=== PATIENT | female | born 1985 | race Caucasian/White ===

== ENCOUNTER 2016-11-20 19:25 | Inpatient (IN) | payer BC ==
[2016-11-20 21:47] LABS: BASOPHIL 0.4 % (0-2.0); EOSINOPHIL 0.4 % (0-4.5); MCH 27.7 pg (25.7-33.7); MCHC 32.9 g/dl (32.0-36.0); MEAN PLT VOLUME 9.2 fl (7.5-11.1); NEUTROPHILS 78.4 % (42.8-82.8); PLATELET COUNT 249 K/MM3 (134-434); WHITE BLOOD COUNT 12.5 K/mm3 (4.0-10.0)
[2016-11-20 22:01] LABS: INR 1.02 (0.82-1.09); PROTHROMBIN TIME (PATIENT) 11.2 SEC (9.98-11.88)
[2016-11-20 22:38] LABS: ANION GAP 8 (8-16); CALCIUM 8.8 mg/dL (8.5-10.1); CO2 25 mmol/L (21-32); CREATININE 0.7 mg/dL (0.55-1.02); GLUCOSE,RANDOM 145 mg/dL (74-106)
--- NOTE | 2016-11-20 23:57 | HP ---
Past Medical History - Primary Care Physician PCP:: Adalid Luna - Admission Chief Complaint: 31yo P1 @ 39.4wks with contructions, r/out for ROM, +FM, no VB History of Present Illness: 1. h/o 2007 7lb 2. Morbid obesity - Elevated early GCT -146, GTT neg twice, EFW 11/15/16 - 4088gm 3. GBS positive for Ampicillin in active labor History Source: Patient Limitations to Obtaining History: No Limitations - Past Medical History ...: 7 ...Para: 1 ...Term: 1 ...: 0 ...Spon : 3 ...Induced : 2 ...Multiple Gestation: 0 ... Weeks Gestation by Dates: 39.4 Dermatology: Yes: Other (h/o genital warts) - Past Surgical History Past Surgical History: Yes: , Cystectomy (Left dermoid cyst) Hx Myomectomy: No Hx Transabdominal Cerclage: No - Smoking History Smoking history: Current every day smoker Have you smoked in the past 12 months: No Aproximately how many cigarettes per day: 3 - Alcohol/Substance Use Hx Alcohol Use: Yes (SOCIALLY) - Social History ADL: Independent Home Medications - Allergies Allergies/Adverse Reactions: Allergies Allergy/AdvReac Type Severity Reaction Status Date / Time No Known Drug Allergies Allergy Verified 12/07/14 13:41 - Home Medications Home Medications: Ambulatory Orders One Tablet 1 tab PO DAILY 11/21/16 Review of Systems - Review of Systems Constitutional: reports: No Symptoms Eyes: reports: No Symptoms HENT: reports: No Symptoms Neck: reports: No Symptoms Cardiovascular: reports: No Symptoms Respiratory: reports: No Symptoms Gastrointestinal: reports: No Symptoms Genitourinary: reports: No Symptoms Breasts: reports: No Symptoms Reported Musculoskeletal: reports: No Symptoms Integumentary: reports: No Symptoms Neurological: reports: No Symptoms Endocrine: reports: No Symptoms Hematology/Lymphatic: reports: No Symptoms Psychiatric: reports: No Symptoms Physical Exam - Maternity Constitutional: Yes: Well Nourished Eyes: Yes: WNL HENT: Yes: WNL Neck: Yes: WNL Cardiovascular: Yes: WNL Lungs: Clear to auscultation Breast(s): Yes: WNL - Abdominal Exam/OB Fundal Height: 40 Number of Fetuses: Single Presentation: Vertex Contractions: Yes Regularity: Regular Intensity: Mild Monitor Mode: External Heart Rate (range): 150 Heart Rate Location: Midline Category: I Accelerations: Uniform Decelerations: None - Vaginal Exam/OB Vaginal Bleediing: No Speculum Exam: No Dilatation (cm): 4 Effacement (%): 75 Amniotic Membrane Status: Intact Nitrazine Test: Negative Presentation: Vertex/Position Station: -3 - Physical Exam Musculoskeletal: Yes: WNL Extremities: Yes: WNL Integumentary: Yes: WNL ...Motor Strength: WNL Psychiatric: Yes: WNL - Labs Lab Results: CBC, BMP 11/20/16 21:42 11/20/16 21:42 Assessment/Plan 31 yo P1 @ 39.4 wks in early labor r/out for ROM IOL planed for am 2 to LGA fetus, morbid obesity Will admit to L&D for augmentation of labor Ampicillin for GBS prophylaxis Start slow pitocin augmentation Desires Epidural for pain management Send labs, start IVF current MF Status reasuring
[2016-11-21 00:29] VITALS: BMI 46.7
[2016-11-21] MEDS ORDERED: AMPICILLIN - 1 GM in SODIUM CHLORIDE 100 ML IVPB SCH (00:30)
[2016-11-21] MEDS ORDERED: OXYTOCIN 15 UNITS/ LR 250 ML 250 ML IVPB SCH (00:30)
[2016-11-21] MEDS: ELECTROLYTE-148 SOLN 1,000 ML IV SCH ×3 (00:30→13:50)
[2016-11-21] MEDS ORDERED: AMPICILLIN - 2 GM in SODIUM CHLORIDE 100 ML IVPB ONE (00:45)
[2016-11-21] MEDS: FENTANYL/BUPIVACAINE/NS/PF - PCEA - 50 ML DISP.SYRIN EP SCH ×5 (01:55→19:30)
[2016-11-21] MEDS: AMPICILLIN - 1 GM in SODIUM CHLORIDE 100 ML IVPB SCH ×5 (05:00→20:25)
--- NOTE | 2016-11-21 07:58 | PN ---
Ante-Partal Exam - Subjective Subjective: 31 yo P1 @ 39 wks with LGA fetus presented in early labor undergoing augmentation of labor on Pitocin with epidural anesthesia, comfortable, but feels conductions s/p two doses of Ampicillin for GBS prophylaxis Vital Signs: Vital Signs Temperature 98.2 F 11/21/16 07:00 Pulse Rate 83 11/21/16 07:44 Respiratory Rate 20 11/21/16 07:44 Blood Pressure 114/65 11/21/16 07:44 O2 Sat by Pulse Oximetry (%) 99 11/21/16 07:44 Bleeding: No Headache: No Visual changes: No Right upper quadrant pain: No - Contractions Contractions: Yes Regularity: Regular Intensity: Mild Monitor Mode: External - Exam during Labor Heart Rate: 135 Variability: Moderate Heart Rate Location: Midline Category: I Monitor Accelerations: Present Monitor Decelerations: None Exam: Vaginal Dilatation (cm): 5 Effacement (%): 80 Amniotic Membrane Status: Bulging (AROM) Amniotic Fluid: Clear Presentation: Vertex Station: -3 - Assessment/Plan Assessment/Plan: 31 yo P1 @ 39.5 labor augmentation on Pitocin, AROM for further augmentation, post #2 doses of Ampicillin pain well controlled will monitor the progress of labor LGA fetus, Class 3 maternal obesity, shoulder precautions if falls of labor curve will consider c/section
[2016-11-21] MEDS ORDERED: TUBERCULIN PPD 5 TU/0.1ML SYRINGE (IN PATIENT USE ONLY) ID ONE (08:30)
--- NOTE | 2016-11-21 12:18 | PN ---
Ante-Partal Exam - Subjective Vital Signs: Vital Signs Temperature 98.4 F 11/21/16 12:00 Pulse Rate 89 11/21/16 12:00 Respiratory Rate 20 11/21/16 12:00 Blood Pressure 109/64 11/21/16 12:00 O2 Sat by Pulse Oximetry (%) 100 11/21/16 12:00 Bleeding: No Headache: No Visual changes: No Right upper quadrant pain: No - Contractions Contractions: Yes Regularity: Regular Intensity: Mild/Mod Monitor Mode: External - Exam during Labor Heart Rate: 145 Variability: Moderate Heart Rate Location: Midline Category: I Monitor Accelerations: Present Monitor Decelerations: None Exam: Vaginal Dilatation (cm): 6 Effacement (%): 90 Amniotic Membrane Status: Ruptured Amniotic Fluid: Clear Presentation: Vertex Station: -1 (molding, no caput) - Intrapartum Hemorrhage Risk Medium Risk Factors: None High Risk Factors: None Risk Score: 0 Risk Level: Low Risk - Assessment/Plan Assessment/Plan: 31 yo P1 with LGA fetus adequate labor progress reasuring FHR and maternal status Pitocin @ 7mU/min cont augmentation of labor
--- NOTE | 2016-11-21 14:28 | PN ---
Ante-Partal Exam - Subjective Subjective: 31 yo P1 augmentation of labor, LGA feels rectal pressure Vital Signs: Vital Signs Temperature 98.8 F 11/21/16 14:00 Pulse Rate 82 11/21/16 13:00 Respiratory Rate 20 11/21/16 13:00 Blood Pressure 127/76 11/21/16 13:00 O2 Sat by Pulse Oximetry (%) 100 11/21/16 13:00 Bleeding: No (bloody show) Headache: No Visual changes: No Right upper quadrant pain: No - Contractions Contractions: Yes Regularity: Regular Intensity: Mild/Mod Monitor Mode: External - Exam during Labor Heart Rate: 150 Variability: Moderate Heart Rate Location: Midline Category: I Monitor Accelerations: Present Monitor Decelerations: None Exam: Vaginal Dilatation (cm): 7 Effacement (%): 100 Amniotic Membrane Status: Ruptured Amniotic Fluid: Clear Presentation: Vertex Station: -1 - Intrapartum Hemorrhage Risk Medium Risk Factors: None High Risk Factors: None Risk Score: 0 Risk Level: Low Risk - Assessment/Plan Assessment/Plan: 31yo P1 augmented for LGA currently adequate progress MF status reasuring, continue current care Pitocin @ 7mU/min
--- NOTE | 2016-11-21 16:28 | PN ---
Ante-Partal Exam - Subjective Subjective: 30 wks P1 augmentation of labor for LGA Vital Signs: Vital Signs Temperature 98.9 F 11/21/16 16:00 Pulse Rate 88 11/21/16 14:45 Respiratory Rate 20 11/21/16 14:45 Blood Pressure 96/59 11/21/16 14:45 O2 Sat by Pulse Oximetry (%) 100 11/21/16 14:45 Bleeding: No Headache: No Visual changes: No Right upper quadrant pain: No - Contractions Contractions: Yes Regularity: Regular Intensity: Mild/Mod Monitor Mode: External - Exam during Labor Heart Rate: 150 Variability: Moderate Heart Rate Location: Midline Category: II (mild varriables and occasional late decels) Monitor Accelerations: Present (Scalp stimulation positive, vigorous) Monitor Decelerations: Variable Exam: Vaginal Dilatation (cm): 8 Effacement (%): 100 Amniotic Membrane Status: Ruptured Amniotic Fluid: Clear Presentation: Vertex Station: -1 - Intrapartum Hemorrhage Risk Medium Risk Factors: None High Risk Factors: None Risk Score: 0 Risk Level: Low Risk - Assessment/Plan Assessment/Plan: overall reassuring status cont current augmentation O2 by face mask
[2016-11-21] MEDS ORDERED: WITCH HAZEL 50% (TUCKS) 40 PAD/JAR PAD TP PRN (22:09)
[2016-11-21] MEDS ORDERED: METHYLERGONOVINE MALEATE 0.2 MG/1 ML AMP IM PRN (22:09)
[2016-11-21] MEDS ORDERED: BENZOCAINE 28 GM HEMORRHOIDAL OINTMENT TP PRN (22:09)
[2016-11-21] MEDS ORDERED: BISACODYL 10 MG SUPP.RECT RC PRN (22:09)
[2016-11-21] MEDS ORDERED: BENZOCAINE 20% 57 GM BOTTLE TP PRN (22:09)
[2016-11-21] MEDS ORDERED: OXYTOCIN 20 UNITS in 0.9% NS 1,000 ML IV SCH (22:15)
[2016-11-21] MEDS: IBUPROFEN 600 MG TABLET (FP) PO PRN (23:10)
[2016-11-21] MEDS: ACETAMINOPHEN 325 MG TABLET (FP) PO PRN (23:10)
--- NOTE | 2016-11-21 23:43 | PN ---
Delivery - Delivery Vaginal Delivery: No Problems, Spontaneous Type of Anesthesia: Epidural Episiotomy/Laceration: Midline (episiotomy) EBL (cc): 300 Delivery, Single - Stages of Labor Date 1st Stage Initiatied: 11/21/16 Time 1st Stage Initiated: 01:30 Date 2nd Stage Initiated: 11/21/16 Time 2nd Stage Initiated: 20:40 Date of Delivery: 11/21/16 Time of Delivery: 21:41 Date Placenta Delivered: 11/21/16 Time Placenta Delivered: 21:55 Placenta: Yes: Spontaneous, Normal Configuration - Condition of Yarn Packer/Hog Man Present: No Infant Gender: Female Weight: 3.997 kg Position: OA Total Hours ROM (Hrs/Mins): 14 hours 10 minutes - 1 Minute Total Score: 8 5 Minutes Total Score: 9 - Feeding Plan Initial Plan: Elected not to breastfeed exclusively throughout hospitalization Remarks - Remarks Remarks: Normal delivery w/o complications. [facility]
[2016-11-22] MEDS: IBUPROFEN 600 MG TABLET (FP) PO PRN ×2 (05:18→10:25)
[2016-11-22] MEDS: ACETAMINOPHEN 325 MG TABLET (FP) PO PRN ×2 (05:18→10:24)
[2016-11-22 08:32] LABS: MCH 26.9 pg (25.7-33.7); MCHC 31.9 g/dl (32.0-36.0); MEAN CELL VOLUME 84.5 fl (80-96); MEAN PLT VOLUME 9.1 fl (7.5-11.1); PLATELET COUNT 224 K/MM3 (134-434); RDW 14.9 % (11.6-15.6); WHITE BLOOD COUNT 20.7 K/mm3 (4.0-10.0)
[2016-11-22] MEDS: PRENATAL VITAMINS W/ FOLIC ACID TABLET (FP) PO SCH (10:24)
[2016-11-22 11:19] LABS: PLATELET ESTIMATE ADEQUATE
[2016-11-22] MEDS ORDERED: DIPHTH,PERTUSS(ACELL),TET 0.5 ML DISP.SYRIN IM ONE (12:00)
--- NOTE | 2016-11-22 17:28 | PN ---
Post Progress Note - Subjective Subjective: Pt is c/o pubic pain and difficulty walking. Post Day: 1 Type of Delivery: Vital Signs: Vital Signs Temperature 98.5 F 11/22/16 14:47 Pulse Rate 82 11/22/16 14:47 Respiratory Rate 20 11/22/16 14:47 Blood Pressure 108/69 11/22/16 14:47 O2 Sat by Pulse Oximetry (%) 99 11/21/16 23:29 Breast Exam: Yes: Soft Uterus: Yes: Fundus Firm, Fundus below umbilicus, Non-tender Abdomen/GI: Yes: Abdomen soft, Passing flatus, Tolerating PO Lochia: Yes: Rubra Lochia, amount: Small Extremities: Yes: Calves non-tender, Edema (trace) Perineum: Yes: Episiotomy (repair intact) Activity: Ambulating - Labs Labs: CBC WBC 20.7 K/mm3 (4.0-10.0) H D 11/22/16 07:45 RBC 3.79 M/mm3 (3.60-5.2) 11/22/16 07:45 Hgb 10.2 GM/dL (10.7-15.3) L 11/22/16 07:45 Hct 32.0 % (32.4-45.2) L 11/22/16 07:45 MCV 84.5 fl (80-96) 11/22/16 07:45 MCH 26.9 pg (25.7-33.7) 11/22/16 07:45 MCHC 31.9 g/dl (32.0-36.0) L 11/22/16 07:45 RDW 14.9 % (11.6-15.6) 11/22/16 07:45 Plt Count 224 K/MM3 (134-434) 11/22/16 07:45 MPV 9.1 fl (7.5-11.1) 11/22/16 07:45 Neutrophils % Y 11/22/16 07:45 Neutrophils % (Manual) 84 % (42.8-82.8) H 11/22/16 07:45 Band Neuts % (Manual) No Result Required. 11/22/16 07:45 Lymphocytes % Y 11/22/16 07:45 Lymphocytes % (Manual) 10 % (8-40) 11/22/16 07:45 Monocytes % 4.5 % (3.8-10.2) 11/20/16 21:42 Monocytes % (Manual) 6 % (3.8-10.2) 11/22/16 07:45 Eosinophils % 0.4 % (0-4.5) 11/20/16 21:42 Basophils % 0.4 % (0-2.0) 11/20/16 21:42 Other Cell Type No Result Required. 11/22/16 07:45 Platelet Estimate Adequate 11/22/16 07:45 Poikilocytosis No Result Required. 11/22/16 07:45 Other Findings, Remarks: Pubic tenderness w/palpation, no swelling or hematoma Assessment/Plan 31yo P2 s/p , doing well stable, afebrile. Exam suspicious for pubic symphysis separation. Plan to check Xray care instructions reviewed. Continue routine care. Ambulation encouraged Discharge instruction reviewed.
[2016-11-22 18:16] VITALS: TEMP 98
[2016-11-22] MEDS ORDERED: SENNOSIDES/DOCUSATE COMBO (SENNA PLUS) TABLET (UD) PO PRN (22:00)
[2016-11-23] MEDS: IBUPROFEN 600 MG TABLET (FP) PO PRN ×2 (00:32→07:10)
[2016-11-23] MEDS: ACETAMINOPHEN 325 MG TABLET (FP) PO PRN ×2 (00:33→07:11)
--- NOTE | 2016-11-23 09:51 | PN ---
Post Progress Note - Subjective Subjective: Patient without acute complaints. Reports noticed pelvic pain, worse with walking, abduction of legs s/p Pelvis XR - mild pubic symphysis separation 14 mm Reports tolerating oral intake without nausea or vomiting. Ambulating without dizziness. Denies fevers or chills. Pain well controlled with oral pain medication. without difficulty. Passing flatus. Post Day: 2 Type of Delivery: Vital Signs: Vital Signs Temperature 98.0 F 11/22/16 21:55 Pulse Rate 73 11/22/16 21:55 Respiratory Rate 20 11/22/16 21:55 Blood Pressure 118/70 11/22/16 21:55 O2 Sat by Pulse Oximetry (%) 99 11/21/16 23:29 Breast Exam: Yes: Engorged Uterus: Yes: Fundus Firm, Fundus below umbilicus Abdomen/GI: Yes: Abdomen soft, Passing flatus, Tolerating PO. No: Abdominal Distention, Tender Lochia: Yes: Serosa Lochia, amount: Small Extremities: Yes: Calves non-tender, Edema (+1 bilaterally) Activity: Ambulating - Labs Labs: CBC WBC 20.7 K/mm3 (4.0-10.0) H D 11/22/16 07:45 RBC 3.79 M/mm3 (3.60-5.2) 11/22/16 07:45 Hgb 10.2 GM/dL (10.7-15.3) L 11/22/16 07:45 Hct 32.0 % (32.4-45.2) L 11/22/16 07:45 MCV 84.5 fl (80-96) 11/22/16 07:45 MCH 26.9 pg (25.7-33.7) 11/22/16 07:45 MCHC 31.9 g/dl (32.0-36.0) L 11/22/16 07:45 RDW 14.9 % (11.6-15.6) 11/22/16 07:45 Plt Count 224 K/MM3 (134-434) 11/22/16 07:45 MPV 9.1 fl (7.5-11.1) 11/22/16 07:45 Neutrophils % Y 11/22/16 07:45 Neutrophils % (Manual) 84 % (42.8-82.8) H 11/22/16 07:45 Band Neuts % (Manual) No Result Required. 11/22/16 07:45 Lymphocytes % Y 11/22/16 07:45 Lymphocytes % (Manual) 10 % (8-40) 11/22/16 07:45 Monocytes % 4.5 % (3.8-10.2) 11/20/16 21:42 Monocytes % (Manual) 6 % (3.8-10.2) 11/22/16 07:45 Eosinophils % 0.4 % (0-4.5) 11/20/16 21:42 Basophils % 0.4 % (0-2.0) 11/20/16 21:42 Other Cell Type No Result Required. 11/22/16 07:45 Platelet Estimate Adequate 11/22/16 07:45 Poikilocytosis No Result Required. 11/22/16 07:45 Assessment/Plan 31 yo PPD # 2 s/p , afebrile, vital signs stable, doing well 1. Patient stable for discharge home today. 2. Patient encouraged to contact MD for: - Severe pain not controlled by oral pain medication - Fevers or chills - Nausea or vomiting, intolerance of oral intake 3. Patient to follow up in office in 4-6 weeks for visit
--- NOTE | 2016-11-23 09:56 | DS ---
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 Vital Signs: Vital Signs Temperature 98.0 F 11/22/16 21:55 Pulse Rate 73 11/22/16 21:55 Respiratory Rate 20 11/22/16 21:55 Blood Pressure 118/70 11/22/16 21:55 O2 Sat by Pulse Oximetry (%) 99 11/21/16 23:29 Labs: CBC, BMP 11/22/16 07:45 11/20/16 21:42 Delivery - Delivery Vaginal Delivery: No Problems, Spontaneous Type of Anesthesia: Epidural Episiotomy/Laceration: Midline (episiotomy) EBL (cc): 300 Delivery, Single - Stages of Labor Date 1st Stage Initiatied: 11/21/16 Time 1st Stage Initiated: 01:30 Date 2nd Stage Initiated: 11/21/16 Time 2nd Stage Initiated: 20:40 Date of Delivery: 11/21/16 Time of Delivery: 21:41 Time Placenta Delivered: 21:55 Placenta: Yes: Spontaneous, Normal Configuration - Condition of Cone Sewer/Drupal Developer Present: No Infant Gender: Female Weight: 8 lb 13 oz Position: OA Total Hours ROM (Hrs/Mins): 14 hours 10 minutes - 1 Minute Total Score: 8 5 Minutes Total Score: 9 - [place] Feeding Plan Initial Plan: Elected not to breastfeed exclusively throughout hospitalization Discharge Summary Reason For Visit: LABOR Current Active Problems Vaginal delivery (Acute) Procedures: Principal: vaginal delivery Hospital Course: s/p noted to have significant pelvic pain upon walking and abduction of legs, pubic symphysis pain, s/p XR noted to have mild separation. patient able to ambulate, stable for discharge home PPD#2 Condition: Good - Instructions Diet, Activity, Other Instructions: Physical activity Resume your normal everyday activity as tolerated no heavy lifting or exercise until seen by your surgeon. You may walk unlimited maylin of and climb stairs. You may resume driving the car when you feel safe and comfortable behind the wheel. No sexual activity as instructed. Diet There are no dietary restrictions. Eat healthy, high-fiber foods. Drink 6 to 8 glasses of liquid each day. This will assist in keeping your bowels are regular. Pain management You may take Tylenol or acetaminophen or Ibuprofen (for example, Motrin, Advil etc.) from my pain prescription medication is ordered should be taken as prescribed for moderate to severe pain. Call for any of the following Severe pain not relieved by medication Fever of 101 or higher Excessive bleeding or drainage on dressing Inability to urinate Referrals: Vijaya Crocker MD [Staff Physician] - Disposition: HOME - Home Medications Comprehensive Discharge Medication List: Ambulatory Orders One Tablet 1 tab PO DAILY 11/21/16 Acetaminophen [Tylenol -] 1,000 mg PO Q6H #60 tablet 11/23/16
[2016-11-23] MEDS: PRENATAL VITAMINS W/ FOLIC ACID TABLET (FP) PO SCH (10:25)
[2016-11-23 10:52] VITALS: BP 118/87; PULSE 83
== END 2016-11-23 13:00 | disposition home or self-care (01) | DRG 775 ==
LOC: JDEL 19:25 → JLDR 21:50 → J3W 11-22 00:58
PROVIDERS: ADMIT Obstetrics & Gynecology; ATTEND Obstetrics & Gynecology
PROC: 10E0XZZ Delivery of Products of Conception, External Approach (ICD-10-PCS; principal; 2016-11-20)
PROC: 0W8NXZZ Division of Female Perineum, External Approach (ICD-10-PCS; 2016-11-20)
DX: O99.214 Obesity complicating childbirth (principal); Z68.42 Body mass index [BMI] 45.0-49.9, adult; E66.01 Morbid (severe) obesity due to excess calories; O36.63X0 Maternal care for excessive fetal growth, third trimester, not applicable or unspecified; O99.824 Streptococcus B carrier state complicating childbirth; O99.333 Smoking (tobacco) complicating pregnancy, third trimester; F17.210 Nicotine dependence, cigarettes, uncomplicated; Z3A.39 39 weeks gestation of pregnancy; Z37.0 Single live birth
CPT/HCPCS: 36415; 59409; 72170-TC; 80048; 85025; 85610; 85730; 86593; 86850; 86900; 86901

== ENCOUNTER 2018-05-20 19:12 | Inpatient (IN) | payer BC ==
[2018-05-20] MEDS ORDERED: PROMETHAZINE HCL 25 MG/1 ML VIAL IVPUSH ONE (21:24)
[2018-05-20] MEDS ORDERED: BUTORPHANOL TARTRATE 1 MG/ML VIAL IVPB ONE (21:24)
--- NOTE | 2018-05-20 21:24 | HP ---
Past Medical History - Primary Care Physician PCP:: Alesha Voss - Admission Chief Complaint: 32yo P2 @ 38.1 with PROM @ 5pm clear fluid, no VB, +FM, no contructions History of Present Illness: 1. Morbid obesity 2. Elevated GCT - GTT wnl 3. SAB x 3, TOP x 2 4. GBS neg 5. Flu/TDap declined History Source: Patient, Medical Record Limitations to Obtaining History: No Limitations - Past Medical History Reproductive: Yes: Other (HPV 18/45 pos Left Dermoid) ...: 8 ...Para: 2 ...Term: 2 ...Spon : 3 ...Induced : 2 ...EDC by Sono: 06/02/18 Dermatology: Yes: Other (h/o genital warts) - Past Surgical History Past Surgical History: Yes: , Cystectomy (Left dermoid cyst) Hx Myomectomy: No Hx Transabdominal Cerclage: No - Smoking History Smoking history: Current every day smoker Have you smoked in the past 12 months: No Aproximately how many cigarettes per day: 3 - Alcohol/Substance Use Hx Alcohol Use: Yes (SOCIALLY) - Social History ADL: Independent Home Medications - Allergies Allergies/Adverse Reactions: Allergies Allergy/AdvReac Type Severity Reaction Status Date / Time No Known Drug Allergies Allergy Verified 05/19/18 01:19 - Home Medications Home Medications: Ambulatory Orders One Tablet 1 tab PO DAILY 11/21/16 Family Disease History - Family Disease History Family History: Denies Review of Systems - Review of Systems Constitutional: reports: No Symptoms Eyes: reports: No Symptoms HENT: reports: No Symptoms Neck: reports: No Symptoms Cardiovascular: reports: No Symptoms Respiratory: reports: No Symptoms Gastrointestinal: reports: No Symptoms Genitourinary: reports: No Symptoms Breasts: reports: No Symptoms Reported Musculoskeletal: reports: No Symptoms Integumentary: reports: No Symptoms Neurological: reports: No Symptoms Endocrine: reports: No Symptoms Hematology/Lymphatic: reports: No Symptoms Psychiatric: reports: No Symptoms Physical Exam - Maternity Vital Signs: Vital Signs Temperature 97.6 F 05/20/18 21:00 Pulse Rate 75 05/20/18 21:00 Respiratory Rate 20 05/20/18 21:00 Blood Pressure 122/56 L 05/20/18 21:00 O2 Sat by Pulse Oximetry (%) Constitutional: Yes: Well Nourished, No Distress, Calm Eyes: Yes: WNL HENT: Yes: WNL, Atraumatic, Normocephalic Neck: Yes: WNL, Supple, Trachea Midline Cardiovascular: Yes: WNL, Regular Rate and Rhythm Lungs: Clear to auscultation Breast(s): Yes: WNL - Abdominal Exam/OB Fundal Height: 39 (8lb) Number of Fetuses: Single Presentation: Vertex Contractions: No Monitor Mode: External Heart Rate (range): 145 Heart Rate Location: Midline Category: I Accelerations: Uniform Decelerations: None - Vaginal Exam/OB Vaginal Bleediing: No Speculum Exam: Yes (pooling) Dilatation (cm): 2 Effacement (%): 80 Amniotic Membrane Status: Ruptured Nitrazine Test: Positive Amniotic Fluid: Yes: Clear Presentation: Vertex/Position Station: -3 - Physical Exam Musculoskeletal: Yes: WNL Extremities: Yes: WNL Edema: No Integumentary: Yes: WNL ...Motor Strength: WNL Psychiatric: Yes: WNL, Alert, Oriented Assessment/Plan 32yo P2052 @ 38.1 wks with PROM not in labor Admit to L&D IVF, Labs Augment labor with Pitocin Stadol/Phenergan in early labor and Epidural once in active labor for pain Adequate pelvis MF status reasuring
[2018-05-20 21:29] LABS: BASO % 0.2 % (0-2.0); EOS % 0.4 % (0-4.5); HEMATOCRIT 34.6 % (32.4-45.2); HEMOGLOBIN 11.8 GM/dL (10.7-15.3); LYMPH % 18.3 % (8-40); MCH 29.6 pg (25.7-33.7); MCHC 34.1 g/dl (32.0-36.0); MEAN CELL VOLUME 86.7 fl (80-96); MEAN PLT VOLUME 9.2 fl (7.5-11.1); MONO % 4.3 % (3.8-10.2); NEUT % 76.8 % (42.8-82.8); PLATELET COUNT 233 K/MM3 (134-434); RBC 3.99 M/mm3 (3.60-5.2); RDW 14.7 % (11.6-15.6); WHITE BLOOD COUNT 10.2 K/mm3 (4.0-10.0)
[2018-05-20] MEDS ORDERED: DEXTROSE 5%-LACTATED RINGERS 1,000 ML IV SCH (21:30)
[2018-05-20] MEDS ORDERED: OXYTOCIN 30 UNITS in 0.9% NS 30 UNIT/500 ML INFUS.BAG IVPB SCH (21:30)
[2018-05-20 21:53] VITALS: BMI 49.0
[2018-05-20 21:54] LABS: INR 0.96 (0.83-1.09); PROTHROMBIN TIME (PATIENT) 11.3 SEC (9.7-13.0)
[2018-05-20 21:56] LABS: ACTIVATED PTT 26.7 SECONDS (25.2-36.5)
[2018-05-20 21:58] LABS: ANION GAP 8 MMOL/L (8-16); BLOOD UREA NITROGEN 7 mg/dL (7-18); CALCIUM 8.4 mg/dL (8.5-10.1); CHLORIDE 108 mmol/L (98-107); CO2 22 mmol/L (21-32); CREATININE 0.5 mg/dL (0.55-1.3); GLUCOSE,RANDOM 111 mg/dL (74-106); POTASSIUM 3.8 mmol/L (3.5-5.1); SODIUM 139 mmol/L (136-145)
[2018-05-20] MEDS ORDERED: OXYTOCIN 20 UNITS in 0.9% NS 0 UNIT/0 ML INFUS.BAG IV ONE (22:13)
[2018-05-20] MEDS ORDERED: OXYTOCIN 30 UNITS in 0.9% NS 30 UNIT/500 ML INFUS.BAG IVPB ONE (22:14)
[2018-05-21] MEDS ORDERED: BUTORPHANOL TARTRATE 1 MG/ML VIAL ONE ×2 (01:38)
[2018-05-21] MEDS ORDERED: PROMETHAZINE HCL 25 MG/1 ML VIAL ONE (01:39)
[2018-05-21] MEDS ORDERED: FENTANYL/BUPIVACAINE/NS/PF - PCEA - 50 ML DISP.SYRIN EP ONE (05:15)
[2018-05-21] MEDS ORDERED: BUPIVACAINE HCL/PF 0.25% (2.5MG/ML) 10 ML VIAL ONE (05:18)
[2018-05-21] MEDS ORDERED: NALOXONE HCL 0.4 MG/ML VIAL IVPUSH PRN (05:43)
[2018-05-21] MEDS ORDERED: FENTANYL/BUPIVACAINE/NS/PF - PCEA - 50 ML DISP.SYRIN EP SCH (05:45)
--- NOTE | 2018-05-21 06:59 | PN ---
Progress Note, Labor Vaginal Exam #1 Labor Exam Date: 05/21/18 Labor Exam Time: 06:30 Heart Rate (range): 145 Dilatation: 6 Effacement (%): 90 Amniotic Membrane Status: Ruptured Presentation: Vertex/Position Station: -1 Remarks: Category 2 FHR Early decels + scalp stimulation continue monitoring progress of labor
[2018-05-21] MEDS ORDERED: OXYTOCIN 20 UNITS in 0.9% NS 20 UNIT/1,000 ML INFUS.BAG IV ONE ×2 (09:39→11:14)
[2018-05-21] MEDS ORDERED: BENZOCAINE 28 GM HEMORRHOIDAL OINTMENT TP PRN (10:08)
[2018-05-21] MEDS ORDERED: WITCH HAZEL 50% (TUCKS) 40 PAD/JAR PAD TP PRN (10:08)
[2018-05-21] MEDS ORDERED: METHYLERGONOVINE MALEATE 0.2 MG/1 ML AMP IM PRN (10:08)
[2018-05-21] MEDS ORDERED: BENZOCAINE 20% 57 GM BOTTLE TP PRN (10:08)
[2018-05-21] MEDS ORDERED: BISACODYL 10 MG SUPP.RECT RC PRN (10:08)
--- NOTE | 2018-05-21 10:08 | PN ---
Delivery - Delivery Type of Anesthesia: Epidural Episiotomy/Laceration: None EBL (cc): 200 Delivery, Single - Stages of Labor Date 1st Stage Initiatied: 05/20/18 Time 1st Stage Initiated: 17:00 Date 2nd Stage Initiated: 05/21/18 Time 2nd Stage Initiated: 09:40 Date of Delivery: 05/21/18 Time of Delivery: 10:00 Date Placenta Delivered: 05/21/18 Time Placenta Delivered: 10:05 Placenta: Yes: Spontaneous - Condition of Infant Net Software Architect/Paint Mixer Present: Yes Gender: Female Weight: 6 lb 11 oz Position: Left, OA - 1 Minute Total Score: 9 5 Minutes Total Score: 9 - [place] Feeding Plan Initial Plan: Elected not to breastfeed exclusively throughout hospitalization Benefits of Exclusively reinforced: Yes Remarks - Remarks Remarks: Uncomplicated delivery of head and shoulders
[2018-05-21 10:46] LABS: ARTERIAL BLD GAS O2 SATURATION 59.2 % (90-98.9); ARTERIAL BLOOD GAS BASE EXCESS -6.6 meq/l (-2-2); ARTERIAL BLOOD GAS PCO2 53.3 mmHg (35-45); ARTERIAL BLOOD GAS PO2 30.6 mmHg (80-100); ARTERIAL BLOOD GAS pH 7.23 (7.35-7.45)
[2018-05-21 10:48] LABS: VENOUS PC02 42.5 mmHg (38-52); VENOUS PH 7.3 (7.32-7.42); VENOUS PO2 39.3 mmHg (28-48)
[2018-05-21] MEDS: IBUPROFEN 600 MG TABLET (FP) PO PRN ×2 (13:25→20:55)
[2018-05-21] MEDS: ACETAMINOPHEN 325 MG TABLET (FP) PO PRN ×2 (13:26→20:55)
[2018-05-21] MEDS: OXYTOCIN 20 UNITS in 0.9% NS 20 UNIT/1,000 ML INFUS.BAG IV SCH ×2 (15:51→19:37)
[2018-05-21] MEDS: SENNOSIDES/DOCUSATE COMBO (SENNA PLUS) TABLET (UD) PO PRN (20:55)
[2018-05-21] MEDS: FERROUS SO4 325 MG TABLET (FP) PO SCH (22:12)
[2018-05-22] MEDS: ACETAMINOPHEN 325 MG TABLET (FP) PO PRN ×3 (05:54→21:35)
[2018-05-22] MEDS: IBUPROFEN 600 MG TABLET (FP) PO PRN ×3 (05:54→21:35)
[2018-05-22 06:26] LABS: BASO % 0.2 % (0-2.0); EOS % 1.1 % (0-4.5); HEMATOCRIT 30.7 % (32.4-45.2); HEMOGLOBIN 10.3 GM/dL (10.7-15.3); LYMPH % 20.4 % (8-40); MCHC 33.7 g/dl (32.0-36.0); MEAN CELL VOLUME 85.9 fl (80-96); MEAN PLT VOLUME 9.2 fl (7.5-11.1); MONO % 5.7 % (3.8-10.2); NEUT % 72.6 % (42.8-82.8); PLATELET COUNT 215 K/MM3 (134-434); RBC 3.57 M/mm3 (3.60-5.2); RDW 14.9 % (11.6-15.6); WHITE BLOOD COUNT 12.4 K/mm3 (4.0-10.0)
[2018-05-22] MEDS: FERROUS SO4 325 MG TABLET (FP) PO SCH ×2 (09:33→21:35)
[2018-05-22] MEDS: PRENATAL VITAMINS W/ FOLIC ACID TABLET (FP) PO SCH (09:33)
--- NOTE | 2018-05-22 16:46 | PN ---
Post Progress Note - Subjective Subjective: Patient without acute complaints. Reports tolerating oral intake without nausea or vomiting. Ambulating without dizziness. Denies fevers or chills. Pain well controlled with oral pain medication. Post Day: 1 Type of Delivery: Vital Signs: Vital Signs Temperature 98.2 F 05/22/18 07:30 Pulse Rate 73 05/22/18 07:30 Respiratory Rate 19 05/22/18 07:30 Blood Pressure 97/57 L 05/22/18 07:30 O2 Sat by Pulse Oximetry (%) 100 05/21/18 11:00 Breast Exam: Yes: Soft Uterus: Yes: Fundus Firm, Fundus below umbilicus, Non-tender Abdomen/GI: Yes: Abdomen soft, Passing flatus, Tolerating PO Lochia: Yes: Rubra Lochia, amount: Small Extremities: Yes: Calves non-tender Perineum: Yes: Intact Activity: Ambulating - Labs Labs: CBC WBC 12.4 K/mm3 (4.0-10.0) H 05/22/18 05:54 RBC 3.57 M/mm3 (3.60-5.2) L 05/22/18 05:54 Hgb 10.3 GM/dL (10.7-15.3) L 05/22/18 05:54 Hct 30.7 % (32.4-45.2) L 05/22/18 05:54 MCV 85.9 fl (80-96) 05/22/18 05:54 MCH 29.0 pg (25.7-33.7) 05/22/18 05:54 MCHC 33.7 g/dl (32.0-36.0) 05/22/18 05:54 RDW 14.9 % (11.6-15.6) 05/22/18 05:54 Plt Count 215 K/MM3 (134-434) 05/22/18 05:54 MPV 9.2 fl (7.5-11.1) 05/22/18 05:54 Absolute Neuts (auto) 9.0 K/mm3 (1.5-8.0) H 05/22/18 05:54 Neutrophils % 72.6 % (42.8-82.8) 05/22/18 05:54 Lymphocytes % 20.4 % (8-40) 05/22/18 05:54 Monocytes % 5.7 % (3.8-10.2) 05/22/18 05:54 Eosinophils % 1.1 % (0-4.5) D 05/22/18 05:54 Basophils % 0.2 % (0-2.0) 05/22/18 05:54 Nucleated RBC % 0 % (0-0) 05/22/18 05:54 Assessment/Plan 32yo P3 s/p , doing well stable, afebrile. Asymptomatic for anemia. care instructions reviewed. Continue routine care. Ambulation encouraged Discharge instruction reviewed.
--- NOTE | 2018-05-22 16:49 | DS ---
Physical Exam-[employer] Vital Signs: Vital Signs Temperature 98.2 F 05/22/18 07:30 Pulse Rate 73 05/22/18 07:30 Respiratory Rate 19 05/22/18 07:30 Blood Pressure 97/57 L 05/22/18 07:30 O2 Sat by Pulse Oximetry (%) 100 05/21/18 11:00 Constitutional: Yes: No Distress, Calm, Obese Eyes: Yes: WNL, Conjunctiva Clear HENT: Yes: WNL, Atraumatic, Normocephalic Neck: Yes: WNL, Supple, Trachea Midline Cardiovascular: Yes: WNL, Regular Rate and Rhythm Respiratory: Yes: WNL, Regular, CTA Bilaterally Gastrointestinal: Yes: Normal Bowel Sounds, Soft, Abdomen, Obese ...Rectal Exam: Yes: Deferred Renal/: Yes: WNL ....Post : Yes: Uterus firm, Uterus non-tender, Slight lochia rubra Breast(s): Yes: WNL Musculoskeletal: Yes: WNL Extremities: Yes: WNL Edema: No Integumentary: Yes: WNL Neurological: Yes: WNL, Alert, Oriented ...Motor Strength: WNL Psychiatric: Yes: WNL, Alert, Oriented Labs: CBC, BMP 05/22/18 05:54 05/20/18 21:00 Delivery - Delivery Vaginal Delivery: No Problems, Spontaneous Type of Anesthesia: Epidural Episiotomy/Laceration: None EBL (cc): 200 Delivery, Single - Stages of Labor Date 1st Stage Initiatied: 05/20/18 Time 1st Stage Initiated: 17:00 Date 2nd Stage Initiated: 05/21/18 Time 2nd Stage Initiated: 09:40 Date of Delivery: 05/21/18 Time of Delivery: 10:00 Time Placenta Delivered: 10:05 Placenta: Yes: Spontaneous, Normal Configuration - 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 Present: Yes Name: Justo Nicole Gender: Female Weight: 3.033 kg Position: Left, OA Total Hours ROM (Hrs/Mins): 17h - 1 Minute Total Score: 9 5 Minutes Total Score: 9 - Feeding Plan Initial Plan: Elected not to breastfeed exclusively throughout hospitalization Benefits of Exclusively reinforced: Yes Discharge Summary Reason For Visit: LABOR at 38wk admitted with PROM Procedures: Principal: Hospital Course: Normal recovery Condition: Good - Instructions Diet, Activity, Other Instructions: Physical activity Resume your normal everyday activity as tolerated no heavy lifting or exercise until seen by your surgeon. You may walk unlimited maylin of and climb stairs. You may resume driving the car when you feel safe and comfortable behind the wheel. No sexual activity as instructed. Wound care If you have a bandage, leave it on, and keep dry for 48-72 hours. After that time discard the outer bandage. If they are tapes on the skin under the out of bandage leave them in place. They will peel off in the next 7 to 10 days. Do Not Peel them off. You may shower the day after surgery. If there are tapes present on the skin, you may shower over them. Diet There are no dietary restrictions. Eat healthy, high-fiber foods. Drink 6 to 8 glasses of liquid each day. This will assist in keeping your bowels are regular. Pain management You may take Tylenol or acetaminophen or Ibuprofen (for example, Motrin, Advil etc.) from my pain prescription medication is ordered should be taken as prescribed for moderate to severe pain. Call MD for any of the following: Severe pain not relieved by medication Fever of 101 or higher Excessive bleeding or drainage on dressing Inability to urinate Referrals: Adalid Luna MD [Staff Physician] - Disposition: HOME - Home Medications Comprehensive Discharge Medication List: Ambulatory Orders One Tablet 1 tab PO DAILY 11/21/16
[2018-05-22] MEDS: SENNOSIDES/DOCUSATE COMBO (SENNA PLUS) TABLET (UD) PO PRN (21:35)
--- NOTE | 2018-05-23 06:58 | PN ---
Post Progress Note - Subjective Subjective: Patient without acute complaints. Reports tolerating oral intake without nausea or vomiting. Ambulating without dizziness. Denies fevers or chills. Pain well controlled with oral pain medication. without difficulty. Passing flatus. Post Day: 2 Type of Delivery: Vital Signs: Vital Signs Temperature 98.6 F 05/22/18 22:00 Pulse Rate 74 05/22/18 22:00 Respiratory Rate 18 05/22/18 22:00 Blood Pressure 122/59 L 05/22/18 22:00 O2 Sat by Pulse Oximetry (%) 100 05/21/18 11:00 Breast Exam: Yes: Soft Uterus: Yes: Fundus Firm, Fundus below umbilicus Abdomen/GI: Yes: Abdomen soft, Passing flatus, Tolerating PO. No: Tender Lochia: Yes: Serosa Lochia, amount: Small Extremities: Yes: Calves non-tender, Edema (trace) Activity: Ambulating - Labs Labs: CBC WBC 12.4 K/mm3 (4.0-10.0) H 05/22/18 05:54 RBC 3.57 M/mm3 (3.60-5.2) L 05/22/18 05:54 Hgb 10.3 GM/dL (10.7-15.3) L 05/22/18 05:54 Hct 30.7 % (32.4-45.2) L 05/22/18 05:54 MCV 85.9 fl (80-96) 05/22/18 05:54 MCH 29.0 pg (25.7-33.7) 05/22/18 05:54 MCHC 33.7 g/dl (32.0-36.0) 05/22/18 05:54 RDW 14.9 % (11.6-15.6) 05/22/18 05:54 Plt Count 215 K/MM3 (134-434) 05/22/18 05:54 MPV 9.2 fl (7.5-11.1) 05/22/18 05:54 Absolute Neuts (auto) 9.0 K/mm3 (1.5-8.0) H 05/22/18 05:54 Neutrophils % 72.6 % (42.8-82.8) 05/22/18 05:54 Lymphocytes % 20.4 % (8-40) 05/22/18 05:54 Monocytes % 5.7 % (3.8-10.2) 05/22/18 05:54 Eosinophils % 1.1 % (0-4.5) D 05/22/18 05:54 Basophils % 0.2 % (0-2.0) 05/22/18 05:54 Nucleated RBC % 0 % (0-0) 05/22/18 05:54 Assessment/Plan 32 yo PPD # 2 s/p , afebrile, vital signs stable, doing well 1. Patient stable for discharge home today. 2. Patient encouraged to contact MD for: - Severe pain not controlled by oral pain medication - Fevers or chills - Nausea or vomiting, intolerance of oral intake 3. Patient to follow up in office in 4-6 weeks for visit
[2018-05-23] MEDS: PRENATAL VITAMINS W/ FOLIC ACID TABLET (FP) PO SCH (09:10)
[2018-05-23] MEDS: FERROUS SO4 325 MG TABLET (FP) PO SCH (09:10)
[2018-05-23 09:17] VITALS: BP 99/68; PULSE 67; TEMP 97.7
== END 2018-05-23 12:25 | disposition home or self-care (01) | DRG 807 ==
LOC: JDEL 19:12 → JLDR 19:45 → J3W 05-21 11:30
PROVIDERS: ADMIT Obstetrics & Gynecology; ATTEND Obstetrics & Gynecology
PROC: 10E0XZZ Delivery of Products of Conception, External Approach (ICD-10-PCS; principal; 2018-05-21)
DX: O42.02 Full-term premature rupture of membranes, onset of labor within 24 hours of rupture (principal); Z37.0 Single live birth; O34.211 Maternal care for low transverse scar from previous cesarean delivery; O34.29 Maternal care due to uterine scar from other previous surgery; O99.213 Obesity complicating pregnancy, third trimester; E66.9 Obesity, unspecified; O99.333 Smoking (tobacco) complicating pregnancy, third trimester; F17.210 Nicotine dependence, cigarettes, uncomplicated; Z3A.38 38 weeks gestation of pregnancy
CPT/HCPCS: 36415; 36600; 59409; 80048; 82803; 85025; 85610; 85730; 86593; 86850; 86900; 86901; 87389

== ENCOUNTER 2019-06-10 04:40 | Inpatient (IN) | payer BC ==
[2019-06-10] MEDS ORDERED: ELECTROLYTE-148 SOLN 1,000 ML IV SCH (05:00)
[2019-06-10] MEDS ORDERED: AMPICILLIN SODIUM 2 GM VIAL ONE (05:25)
[2019-06-10] MEDS ORDERED: AMPICILLIN - 2 GM in SODIUM CHLORIDE 100 ML IVPB ONE (05:30)
[2019-06-10 05:44] VITALS: BMI 47.7
[2019-06-10 05:54] LABS: BASO % 0.2 % (0-2.0); HEMATOCRIT 30.8 % (32.4-45.2); HEMOGLOBIN 10.2 GM/dL (10.7-15.3); LYMPH % 21.2 % (8-40); MCH 26.6 pg (25.7-33.7); MEAN CELL VOLUME 80.8 fl (80-96); MEAN PLT VOLUME 9.1 fl (7.5-11.1); MONO % 7.3 % (3.8-10.2); NEUT % 70.3 % (42.8-82.8); PLATELET COUNT 261 K/MM3 (134-434); RBC 3.82 M/mm3 (3.60-5.2); RDW 14.8 % (11.6-15.6); WHITE BLOOD COUNT 9.4 K/mm3 (4.0-10.0)
[2019-06-10 06:09] LABS: INR 0.89 (0.83-1.09); PROTHROMBIN TIME (PATIENT) 10.5 SEC (9.7-13.0)
[2019-06-10 06:12] LABS: ACTIVATED PTT 25.4 SECONDS (25.2-36.5)
[2019-06-10 06:17] LABS: BLOOD UREA NITROGEN 8.3 mg/dL (7-18); CALCIUM 8.4 mg/dL (8.5-10.1); CREATININE 0.6 mg/dL (0.55-1.3); POTASSIUM 3.7 mmol/L (3.5-5.1)
[2019-06-10] MEDS ORDERED: NALOXONE HCL 0.4 MG/ML VIAL IVPUSH PRN (06:20)
[2019-06-10] MEDS ORDERED: LIDO 2%/EPI 1:200000 PRESRVFRE (20 ML SDVIAL) ONE (06:28)
[2019-06-10] MEDS ORDERED: FENTANYL/BUPIVACAINE/NS/PF - PCEA - 50 ML DISP.SYRIN EP ONE (06:28)
[2019-06-10] MEDS ORDERED: FENTANYL/BUPIVACAINE/NS/PF - PCEA - 50 ML DISP.SYRIN EP SCH (06:30)
[2019-06-10] MEDS ORDERED: OXYTOCIN 30 UNITS in 0.9% NS 30 UNIT/500 ML INFUS.BAG IVPB ONE (08:23)
--- NOTE | 2019-06-10 08:34 | HP ---
Past Medical History - Primary Care Physician PCP:: Rafael Lrasen - Admission Chief Complaint: 38.6 weeks. SROM, labor , IDDM , obesity History of Present Illness: 33 yo f g 8 [id number] 38.6 weeks, with SROM since 310 am todaay, clear fluid , has contraction sice 430 am. no fever, cx 4 cm on admission , vx -3 mr, clear, fhr cat1. irregular contraction History Source: Patient Limitations to Obtaining History: No Limitations - Past Medical History ...: 8 ...Para: 3 ...Term: 3 ...: 2 ...Spon : 3 ...Induced : 2 ...Multiple Gestation: 0 ...LMP: 08/29/17 ... Weeks Gestation by Dates: 40.4 ...EDC by Dates: 06/05/19 ...EDC by Sono: 06/17/19 Heme/Onc: Yes: Anemia Dermatology: Yes: Other (h/o genital warts) - Past Surgical History Past Surgical History: Yes: , Cystectomy (Left dermoid cyst) Hx Myomectomy: No Hx Transabdominal Cerclage: No - Smoking History Smoking history: Never smoked Have you smoked in the past 12 months: No Aproximately how many cigarettes per day: 3 - Alcohol/Substance Use Hx Alcohol Use: No - Social History Usual Living Arrangement: Yes: With Spouse ADL: Independent History of Recent Travel: No Home Medications - Allergies Allergies/Adverse Reactions: Allergies Allergy/AdvReac Type Severity Reaction Status Date / Time No Known Drug Allergies Allergy Verified 06/10/19 05:15 - Home Medications Home Medications: Ambulatory Orders Levemir Flextouch 85 units SQ HS 06/08/19 Novolin 70-30 Flexpen 10 units SQ DAILY 06/08/19 Pnv No.95/Ferrous Fum/Folic AC [ Vitamin Tablet] 1 each PO DAILY Review of Systems - Review of Systems Constitutional: reports: No Symptoms Eyes: reports: No Symptoms HENT: reports: No Symptoms Neck: reports: No Symptoms Cardiovascular: reports: No Symptoms Respiratory: reports: No Symptoms Gastrointestinal: reports: No Symptoms Genitourinary: reports: No Symptoms Breasts: reports: No Symptoms Reported Musculoskeletal: reports: No Symptoms Integumentary: reports: No Symptoms Neurological: reports: No Symptoms Endocrine: reports: No Symptoms Hematology/Lymphatic: reports: No Symptoms Psychiatric: reports: No Symptoms Physical Exam - Maternity Vital Signs: Vital Signs Temperature 98.6 F 06/10/19 08:00 Pulse Rate 82 06/10/19 06:55 Respiratory Rate 20 06/10/19 06:55 Blood Pressure 120/60 06/10/19 06:55 O2 Sat by Pulse Oximetry (%) 99 06/10/19 06:55 Constitutional: Yes: Well Nourished, No Distress, Calm Eyes: Yes: WNL, Conjunctiva Clear, EOM Intact HENT: Yes: WNL, Atraumatic, Normocephalic Neck: Yes: WNL, Supple, Trachea Midline Cardiovascular: Yes: WNL, Regular Rate and Rhythm Breast(s): Yes: WNL - Abdominal Exam/OB Fundal Height: 40 Number of Fetuses: Single Presentation: Vertex Contractions: Yes Regularity: Irregular Intensity: Moderate Monitor Mode: External Heart Rate Location: [facility] Category: I Accelerations: Non-Uniform Decelerations: None - Vaginal Exam/OB Vaginal Bleediing: No Speculum Exam: No Dilatation (cm): 4 cm Effacement (%): 80 Amniotic Membrane Status: Ruptured Nitrazine Test: Positive Presentation: Vertex/Position Station: -3 - Physical Exam Musculoskeletal: Yes: WNL Extremities: Yes: WNL Edema: LLE: Trace, RLE: Trace Deep Tendon Reflex Grade: Normal +2 ...Motor Strength: WNL Psychiatric: Yes: WNL - Labs Lab Results: CBC, BMP 06/10/19 05:15 06/10/19 05:15 Hemorrhage Risk Assessment - Risk Factors Medium Risk Factors: Yes: Obesity (BMI >40) High Risk Factors: Yes: None Risk Score: 1 Risk Level: Medium Risk Problem List - Problems (1) with 38 completed weeks gestation Code(s): Z3A.38 - 38 WEEKS GESTATION OF (2) membrane rupture Code(s): UGR4222 - (3) IDDM (insulin dependent diabetes mellitus) Code(s): DBM8585 - (4) Obesities, morbid Code(s): E66.01 - MORBID (SEVERE) OBESITY DUE TO EXCESS CALORIES Assessment/Plan plan admit [facility]
[2019-06-10] MEDS ORDERED: AMPICILLIN SODIUM 1 GM VIAL ONE (08:42)
[2019-06-10] MEDS: AMPICILLIN - 1 GM in SODIUM CHLORIDE 100 ML IVPB SCH ×2 (08:45→14:52)
[2019-06-10] MEDS ORDERED: OXYTOCIN 30 UNITS in 0.9% NS 30 UNIT/500 ML INFUS.BAG IVPB SCH (08:45)
[2019-06-10 09:15] LABS: POC NITRAZINE POS
[2019-06-10] MEDS ORDERED: OXYTOCIN 20 UNITS in 0.9% NS 20 UNIT/1,000 ML INFUS.BAG IV ONE (09:45)
[2019-06-10] MEDS ORDERED: LIDOCAINE HCL 1% PRESERVATIVE FREE - 30ML VIAL ONE (09:45)
[2019-06-10] MEDS ORDERED: BENZOCAINE 28 GM HEMORRHOIDAL OINTMENT TP PRN (10:01)
[2019-06-10] MEDS ORDERED: BISACODYL 10 MG SUPP.RECT RC PRN (10:01)
[2019-06-10] MEDS ORDERED: METHYLERGONOVINE MALEATE 0.2 MG/1 ML AMP IM PRN (10:01)
[2019-06-10] MEDS ORDERED: WITCH HAZEL 50% (TUCKS) 40 PAD/JAR PAD TP PRN (10:01)
[2019-06-10] MEDS ORDERED: BENZOCAINE 20% 57 GM BOTTLE TP PRN (10:01)
--- NOTE | 2019-06-10 10:06 | PN ---
Delivery - Delivery Vaginal Delivery: Spontaneous (head delivered , TETE, nasopharynx suctioned , no cord. ant.and post. shoulder with no difficulty difficulty , live baby girl 9/9 , placenta complete, no laceration , ebl 300 cc , no complication) Type of Anesthesia: Epidural Episiotomy/Laceration: None Delivery, Single - Feeding Plan Initial Plan: Elected not to breastfeed exclusively throughout hospitalization
[2019-06-10] MEDS ORDERED: OXYTOCIN 20 UNITS in 0.9% NS 20 UNIT/1,000 ML INFUS.BAG IV SCH (10:15)
[2019-06-10] MEDS ORDERED: D5W-LR W/ 20 UNITS OXYTOCIN 20 UNIT/1,000 ML INFUS.BAG IV SCH (10:15)
[2019-06-10] MEDS ORDERED: IBUPROFEN 600 MG TABLET (FP) PO ONE (11:36)
[2019-06-10] MEDS ORDERED: ACETAMINOPHEN 325 MG TABLET (FP) ONE (11:36)
[2019-06-10] MEDS: ACETAMINOPHEN 325 MG TABLET (FP) PO PRN ×3 (11:40→20:28)
[2019-06-10] MEDS: IBUPROFEN 600 MG TABLET (FP) PO PRN ×3 (11:40→20:29)
[2019-06-10] MEDS: FERROUS SO4 325 MG TABLET (FP) PO SCH (22:11)
[2019-06-11 08:38] LABS: BASO % 0.3 % (0-2.0); EOS % 1.7 % (0-4.5); HEMATOCRIT 26.9 % (32.4-45.2); HEMOGLOBIN 8.8 GM/dL (10.7-15.3); LYMPH % 25.5 % (8-40); MCH 26.4 pg (25.7-33.7); MCHC 32.8 g/dl (32.0-36.0); MEAN CELL VOLUME 80.6 fl (80-96); MEAN PLT VOLUME 9.6 fl (7.5-11.1); MONO % 5.8 % (3.8-10.2); NEUT % 66.7 % (42.8-82.8); PLATELET COUNT 241 K/MM3 (134-434); RBC 3.34 M/mm3 (3.60-5.2); WHITE BLOOD COUNT 8.9 K/mm3 (4.0-10.0)
--- NOTE | 2019-06-11 09:00 | PN ---
Post Progress Note - Subjective Subjective: No complaints Post Day: 1 Type of Delivery: Vital Signs: Vital Signs Temperature 98.3 F 06/11/19 08:55 Pulse Rate 77 06/11/19 08:55 Respiratory Rate 18 06/11/19 08:55 Blood Pressure 109/68 06/11/19 08:55 O2 Sat by Pulse Oximetry (%) 99 06/10/19 11:05 Breast Exam: Yes: Soft Uterus: Yes: Fundus Firm, Fundus below umbilicus Abdomen/GI: Yes: Abdomen soft, Passing flatus, Tolerating PO Lochia: Yes: Rubra Lochia, amount: Small Extremities: Yes: Calves non-tender, Edema (trace pedal edema b/l) Perineum: Yes: Intact Activity: Ambulating - Labs Labs: CBC WBC 8.9 K/mm3 (4.0-10.0) 06/11/19 07:45 RBC 3.34 M/mm3 (3.60-5.2) L 06/11/19 07:45 Hgb 8.8 GM/dL (10.7-15.3) L 06/11/19 07:45 Hct 26.9 % (32.4-45.2) L 06/11/19 07:45 MCV 80.6 fl (80-96) 06/11/19 07:45 MCH 26.4 pg (25.7-33.7) 06/11/19 07:45 MCHC 32.8 g/dl (32.0-36.0) 06/11/19 07:45 RDW 15.0 % (11.6-15.6) 06/11/19 07:45 Plt Count 241 K/MM3 (134-434) 06/11/19 07:45 MPV 9.6 fl (7.5-11.1) 06/11/19 07:45 Absolute Neuts (auto) 5.9 K/mm3 (1.5-8.0) 06/11/19 07:45 Neutrophils % 66.7 % (42.8-82.8) 06/11/19 07:45 Lymphocytes % 25.5 % (8-40) D 06/11/19 07:45 Monocytes % 5.8 % (3.8-10.2) 06/11/19 07:45 Eosinophils % 1.7 % (0-4.5) 06/11/19 07:45 Basophils % 0.3 % (0-2.0) 06/11/19 07:45 Nucleated RBC % 0 % (0-0) 06/11/19 07:45 Assessment/Plan Pt is s/p , doing well and stable. GDM, diet, and Diabetes screen (after 6-8 wks) discussed. care discussed. Pt is asymptomatic for anemia.
[2019-06-11] MEDS: FERROUS SO4 325 MG TABLET (FP) PO SCH ×2 (11:00→23:12)
[2019-06-11] MEDS: PRENATAL VITAMINS W/ FOLIC ACID TABLET (FP) PO SCH (11:00)
[2019-06-11] MEDS: ACETAMINOPHEN 325 MG TABLET (FP) PO PRN (16:50)
[2019-06-11] MEDS: IBUPROFEN 600 MG TABLET (FP) PO PRN (16:51)
[2019-06-11] MEDS ORDERED: SENNOSIDES/DOCUSATE COMBO (SENNA PLUS) TABLET (UD) PO PRN (22:00)
[2019-06-12] MEDS: FERROUS SO4 325 MG TABLET (FP) PO SCH (09:19)
[2019-06-12] MEDS: PRENATAL VITAMINS W/ FOLIC ACID TABLET (FP) PO SCH (09:19)
[2019-06-12 14:59] VITALS: BP 112/80; PULSE 89; TEMP 99
== END 2019-06-12 15:45 | disposition home or self-care (01) | DRG 807 ==
LOC: JLDR 04:40 → J3W 12:18
PROVIDERS: ADMIT Obstetrics & Gynecology; ATTEND Obstetrics & Gynecology
PROC: 10E0XZZ Delivery of Products of Conception, External Approach (ICD-10-PCS; principal; 2019-06-10)
DX: O24.429 Gestational diabetes mellitus in childbirth, unspecified control (principal); Z37.0 Single live birth; Z3A.38 38 weeks gestation of pregnancy
CPT/HCPCS: 36415; 36600; 59409; 80048; 82803; 82962; 83986-QW; 85025; 85610; 85730; 86593; 86850; 86900; 86901; 87389